=== PATIENT | male | born 1985 | race Caucasian/White ===

== ENCOUNTER 2016-12-01 19:17 | Emergency (ER) | payer MEDICAID, OTHER, SELFPAY ==
[~2016-12-01] VITALS: Ht 172.7 cm; Wt 78.7 kg
[2016-12-01 19:19] VITALS: BP 145/87
== END 2016-12-01 20:54 | disposition home or self-care (01) ==
LOC: ED 20:40
DX: S90.822A Blister (nonthermal), left foot, initial encounter (principal); X58.XXXA Exposure to other specified factors, initial encounter; Y93.89 Activity, other specified; Y99.8 Other external cause status; Y92.89 Other specified places as the place of occurrence of the external cause
CPT/HCPCS: 99281